=== PATIENT | male | born 1980 | race Caucasian/White ===

== ENCOUNTER → 2016-10-20 | Outpatient (CLI) | payer MEDICAID | LOC: RAD 12:42 | DX: M54.5 Low back pain (principal); M51.46 Schmorl's nodes, lumbar region ==

== ENCOUNTER → 2017-03-19 | Outpatient (CLI) | payer SELFPAY | LOC: LAB 11:49 | DX: I10 Essential (primary) hypertension (principal); F41.1 Generalized anxiety disorder ==